=== PATIENT | male | born 1980 | race Caucasian/White ===

== ENCOUNTER → 2025-06-12 | Outpatient (CLI) | payer OTHER, SELFPAY ==
--- NOTE | 2025-06-12 13:50 | ECHOCS_ITS ---
Reason For Study Reason For Study: CHEST PAIN Procedure This was a 2D Doppler, Color Flow transthoracic echocardiogram. The study was technically difficult. Contrast injection was performed. Exam performed in department. Left Ventricle Normal LV size. Left ventricular systolic function is normal. The left ventricular ejection fraction is 60 %. Stage 1 diastolic dysfunction. No regional wall motion abnormalities noted. Right Ventricle Normal RV size. Normal systolic function. Atria Normal left atrium. Normal right atrium. Mitral Valve Normal mitral valve. Tricuspid Valve Normal tricuspid valve. Aortic Valve The aortic valve is not well visualized. Pulmonic Valve Normal pulmonic valve. Great Vessels Normal aortic root. Pericardium/Pleural No pericardial effusion. Medication 22 gauge I.V. with prn adaptor inserted into right arm. Diluted definity 1.5ml given slow IV push to enhance endocardial definition. MMode/2D Measurements & Calculations LVIDd: 4.5 cm IVSd: 1.1 cm Ao root diam: 3.0 cm LVIDs: 2.9 cm LVPWd: 1.0 cm RVDd: 2.8 cm FS: 35.0 % LAV(MOD-bp): 35.4 ml LVAd ap4: 35.7 cm2 SV(MOD-sp4): 66.7 ml LAV(MOD-bp) Indexed: 14.9 ml/m2 LVLd ap4: 9.2 cm SI(MOD-sp4): 28.0 ml/m2 LAV(MOD-sp2): 37.8 ml EDV(MOD-sp4): 115.5 ml LAV(MOD-sp4): 32.8 ml EDV(sp4-el): 117.8 ml LVAs ap4: 21.6 cm2 LVLs ap4: 8.0 cm ESV(MOD-sp4): 48.8 ml ESV(sp4-el): 50.0 ml EF(MOD-sp4): 57.7 % EF(sp4-el): 57.6 % SV(sp4-el): 67.8 ml LA A4 area: 13.9 cm2 LA dimension(2D): 3.3 cm RA A4 area: 10.7 cm2 Time Measurements MV dec time: 0.26 sec Doppler Measurements & Calculations MV E max tashi: 43.5 cm/sec Lat Peak E' Tashi: 12.4 cm/sec Med Peak E' Tashi: 7.7 cm/sec MV A max tashi: 59.4 cm/sec E/E' lat: 3.5 E/E' med: 5.7 MV E/A: 0.73 MV V2 max: 61.1 cm/sec MV dec slope: 167.3 cm/sec2 Ao V2 max: 101.6 cm/sec MV max P.5 mmHg Ao max P.1 mmHg MV V2 mean: 44.0 cm/sec Ao V2 mean: 70.5 cm/sec MV mean P.81 mmHg Ao mean P.3 mmHg MV V2 VTI: 15.2 cm Ao V2 VTI: 17.5 cm AV (velocity ratio): 0.74 LV V1 max: 74.1 cm/sec PA V2 max: 114.7 cm/sec LV V1 max P.2 mmHg PA V2 mean: 73.8 cm/sec LV V1 mean P.5 mmHg LV V1 mean: 59.0 cm/sec LV V1 VTI: 13.0 cm ECHO/Echo Complete W/ Contrast Interpretation Summary Normal LV size. Left ventricular systolic function is normal. The left ventricular ejection fraction is 60 %. Stage 1 diastolic dysfunction. Contrast injection was performed. Ordering Physician: Behzad Cabrera Referring Physician: Behzad Cabrera Performed By: Martha Henry RCS
== END | disposition home or self-care (01) ==
LOC: CVS 13:49
PROVIDERS: Referring Provider Chiropractor; Visit Provider Chiropractor
DX: R07.9 Chest pain, unspecified (principal)
CPT/HCPCS: 93306; Q9957; A4216; C8929